=== PATIENT | male | born 1970 | race Two or more races ===

== ENCOUNTER 2020-12-29 15:54 | Emergency (ER) | payer BC ==
[~2020-12-29] VITALS: Ht 180.3 cm; Wt 90.9 kg
[2020-12-29] MEDS ORDERED: OMEP10CASR PO (16:11)
[2020-12-29] MEDS ORDERED: PLAV1TAB2 PO (16:11)
[2020-12-29 16:34] LABS: BASO % 0.4 % (0.0-1.0); EOS # 0.4 10^3/uL (0.0-0.5); EOS % 5.7 % (0.0-3.0); HEMATOCRIT 46.4 % (42.0-52.0); HEMOGLOBIN 15.5 g/dl (13.5-17.5); LYMPH # 2.9 10^3/uL (1.5-5.0); LYMPH % 38.2 % (24.0-44.0); MEAN CORPUSCULAR HEMOGLOBIN 29.5 pg (27.0-33.0); MEAN CORPUSCULAR HGB CONC 33.4 g/dl (32.0-36.5); MEAN CORPUSCULAR VOLUME 88.4 fl (80.0-96.0); MONO # 0.7 10^3/uL (0.0-0.8); MONO % 9.7 % (2.0-8.0); NEUTROPHILS # 3.5 10^3/uL (1.5-8.5); NEUTROPHILS % 45.7 % (36.0-66.0); PLATELET COUNT, AUTOMATED 273 10^3/uL (150-450); RED BLOOD COUNT 5.25 10^6/uL (4.30-6.10); WHITE BLOOD COUNT 7.6 10^3/uL (4.0-10.0)
--- NOTE | 2020-12-29 16:40 | REP ---
INDICATION: CHEST PAIN. COMPARISON: None TECHNIQUE: Portable AP chest with the patient upright.. FINDINGS: The lung portillo are clear. Cardiac size is normal. The dhaval, mediastinum and skeletal structures are unremarkable. IMPRESSION: Essentially negative portable chest <Electronically signed by Jeff Wray > 12/29/20 [id number]
[2020-12-29 17:03] LABS: CK-MB VALUE MASS < 1.0 NG/ML (<3.6); CPK CREATINE PHOSPHOKINASE 109 U/L (39-308); MB/CK RELATIVE INDEX 0.92 (< OR =4); NT-PRO BNP 81 PG/ML (<125); TROPONIN I < 0.02 NG/ML (< 0.10)
[2020-12-29] MEDS ORDERED: CARVedilol 6.25 MG TAB PO ONE (18:10)
[2020-12-29 18:30] VITALS: BP 123/79
[2020-12-29] MEDS ORDERED: CARV6.25 PO (19:49)
[2020-12-29 20:00] VITALS: BP 131/86
--- NOTE | 2020-12-29 20:32 | ECGEPIP ---
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
--- NOTE | 2020-12-30 19:16 | ECGEPIP ---
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
== END 2020-12-29 20:04 | disposition home or self-care (01) ==
LOC: M ED 15:54
DX: K21.9 Gastro-esophageal reflux disease without esophagitis (principal); R00.2 Palpitations; I25.10 Atherosclerotic heart disease of native coronary artery without angina pectoris; Z95.5 Presence of coronary angioplasty implant and graft; Z79.01 Long term (current) use of anticoagulants; Z79.899 Other long term (current) drug therapy

== ENCOUNTER → 2021-01-02 | Outpatient (CLI) | payer BC ==
[~2021-01-02] MED LIST: CARV6.25 PO; OMEP10CASR PO; PLAV1TAB2 PO
[2021-01-02 17:21] LABS: HEMOGLOBIN A1c 5.2 %
[2021-01-02 17:22] LABS: HEMATOCRIT 46.4 % (42.0-52.0); MEAN CORPUSCULAR HEMOGLOBIN 29.1 pg (27.0-33.0); MEAN CORPUSCULAR HGB CONC 32.3 g/dl (32.0-36.5); MEAN CORPUSCULAR VOLUME 89.9 fl (80.0-96.0); PLATELET COUNT, AUTOMATED 289 10^3/uL (150-450); RED BLOOD COUNT 5.16 10^6/uL (4.30-6.10); WHITE BLOOD COUNT 8.1 10^3/uL (4.0-10.0)
[2021-01-02 17:42] LABS: ALBUMIN 3.8 GM/DL (3.2-5.2); ALT/SGPT 33 U/L (12-78); BILIRUBIN,TOTAL 0.5 MG/DL (0.2-1.0); BLOOD UREA NITROGEN 16 MG/DL (7-18); CALCIUM LEVEL 8.4 MG/DL (8.5-10.1); CARBON DIOXIDE LEVEL 30 MEQ/L (21-32); CHLORIDE LEVEL 106 MEQ/L (98-107); CHOLESTEROL LEVEL 203 MG/DL (<200); CREATININE FOR GFR 0.98 MG/DL (0.70-1.30); GLOMERULAR FILTRATION RATE > 60.0 (>60); GLUCOSE, FASTING 89 MG/DL (70-100); HDL CHOLESTEROL 51 MG/DL (>40); LDL CHOLESTEROL 107 MG/DL (<100); MAGNESIUM LEVEL 2.1 MG/DL (1.8-2.4); NON-HDL-C 152 MG/DL; POTASSIUM SERUM 4.2 MEQ/L (3.5-5.1); SODIUM LEVEL 138 MEQ/L (136-145); TOTAL PROTEIN 7.5 GM/DL (6.4-8.2); TRIGLYCERIDES LEVEL 224 MG/DL (<150)
[2021-01-02 17:54] LABS: HEPATITIS B SURFACE ANTIGEN NEGATIVE (NEGATIVE)
[2021-01-02 18:23] LABS: HEPATITIS C VIRUS ABY INDEX 0.1 INDEX (<0.8); HIV 1&2 SCREEN CENTAUR NEGATIVE (NEGATIVE)
== END ==
LOC: M PLALAB 15:33
PROVIDERS: ATTEND Student in an Organized Health Care Education/Training Program
DX: Z76.89 Persons encountering health services in other specified circumstances (principal)

== ENCOUNTER → 2021-01-02 | Outpatient (REF) | payer BC | LOC: M SFHCPLAZ 15:25 | DX: I25.2 Old myocardial infarction (principal); K21.9 Gastro-esophageal reflux disease without esophagitis; I10 Essential (primary) hypertension ==

== ENCOUNTER → 2021-01-31 | Outpatient (CLI) | payer BC ==
[2021-01-31 16:08] LABS: CHOLESTEROL RISK RATIO 3.483 (<5); FREE T4 0.99 NG/DL (0.76-1.46); THYROID STIMULATING HORMONE 4.12 uIU/ML (0.358-3.740)
== END ==
LOC: M PLALAB 13:04
PROVIDERS: ATTEND Student in an Organized Health Care Education/Training Program
DX: R79.89 Other specified abnormal findings of blood chemistry (principal); E78.5 Hyperlipidemia, unspecified

== ENCOUNTER → 2021-08-20 | Outpatient (CLI) | payer BC ==
[2021-08-20 15:57] LABS: CHOLESTEROL RISK RATIO 2.363 (<5); FREE T4 1.13 NG/DL (0.76-1.46); THYROID STIMULATING HORMONE 3.71 uIU/ML (0.358-3.740)
== END ==
LOC: M PLALAB 11:21
PROVIDERS: ATTEND Student in an Organized Health Care Education/Training Program
DX: R79.89 Other specified abnormal findings of blood chemistry (principal); E78.5 Hyperlipidemia, unspecified

== ENCOUNTER 2022-01-06 18:39 | Emergency (ER) | payer BC ==
[~2022-01-06] VITALS: Ht 180.3 cm; Wt 104.9 kg
[2022-01-06 18:39] VITALS: BP 145/84
== END 2022-01-06 22:12 | disposition left against medical advice (07) ==
LOC: M ED 18:39
DX: Z53.29 Procedure and treatment not carried out because of patient's decision for other reasons (principal)

== ENCOUNTER → 2022-01-07 | Outpatient (CLI) | payer BC ==
[2022-01-07 18:35] LABS: BASO % 0.5 % (0.0-1.0); EOS # 0.3 10^3/uL (0.0-0.5); EOS % 5.7 % (0.0-3.0); HEMATOCRIT 46.9 % (42.0-52.0); HEMOGLOBIN 15.3 g/dl (13.5-17.5); LYMPH # 1.7 10^3/uL (1.5-5.0); LYMPH % 30.9 % (24.0-44.0); MEAN CORPUSCULAR HEMOGLOBIN 29.8 pg (27.0-33.0); MEAN CORPUSCULAR HGB CONC 32.6 g/dl (32.0-36.5); MEAN CORPUSCULAR VOLUME 91.4 fl (80.0-96.0); MONO # 0.5 10^3/uL (0.0-0.8); MONO % 9.1 % (2.0-8.0); NEUTROPHILS % 53.6 % (36.0-66.0); PLATELET COUNT, AUTOMATED 299 10^3/uL (150-450); RED BLOOD COUNT 5.13 10^6/uL (4.30-6.10); WHITE BLOOD COUNT 5.6 10^3/uL (4.0-10.0)
[2022-01-07 19:25] LABS: ALBUMIN 4.1 GM/DL (3.2-5.2); ALT/SGPT 27 U/L (12-78); BLOOD UREA NITROGEN 8 MG/DL (7-18); CALCIUM LEVEL 9.7 MG/DL (8.5-10.1); CARBON DIOXIDE LEVEL 27 MEQ/L (21-32); CHLORIDE LEVEL 104 MEQ/L (98-107); CREATININE FOR GFR 0.99 MG/DL (0.70-1.30); FREE T4 1.28 NG/DL (0.76-1.46); GLOMERULAR FILTRATION RATE > 60.0 (>60); GLUCOSE, FASTING 85 MG/DL (70-100); POTASSIUM SERUM 4.6 MEQ/L (3.5-5.1); SODIUM LEVEL 136 MEQ/L (136-145)
== END ==
LOC: M WUC 13:20
PROVIDERS: ATTEND Physician Assistant
DX: F34.1 Dysthymic disorder (principal)

== ENCOUNTER → 2023-10-26 | Outpatient (CLI) | payer OTHER ==
[~2023-10-26] MED LIST changes: +CLOP75TA99 PO; -PLAV1TAB2 PO
[2023-10-26 15:55] LABS: BASO % 0.1 % (0.0-1.0); EOS # 0.2 10^3/uL (0.0-0.5); EOS % 2.9 % (0.0-3.0); HEMATOCRIT 46.1 % (42.0-52.0); LYMPH # 2.3 10^3/uL (1.5-5.0); LYMPH % 30.6 % (24.0-44.0); MEAN CORPUSCULAR HEMOGLOBIN 29.1 pg (27.0-33.0); MEAN CORPUSCULAR HGB CONC 32.5 g/dl (32.0-36.5); MEAN CORPUSCULAR VOLUME 89.3 fl (80.0-96.0); MONO # 0.5 10^3/uL (0.0-0.8); MONO % 6.7 % (2.0-8.0); NEUTROPHILS # 4.5 10^3/uL (1.5-8.5); NEUTROPHILS % 59.4 % (36.0-66.0); PLATELET COUNT, AUTOMATED 292 10^3/uL (150-450); RED BLOOD COUNT 5.16 10^6/uL (4.30-6.10); WHITE BLOOD COUNT 7.6 10^3/uL (4.0-10.0)
[2023-10-26 15:58] LABS: ALBUMIN 3.7 G/DL (3.2-5.2); ALKALINE PHOSPHATASE 78 U/L (46-116); ALT/SGPT 28 U/L (7.0-40); AST/SGOT 17 U/L (<34); BLOOD UREA NITROGEN 14 MG/DL (9-23); CALCIUM LEVEL 9.4 MG/DL (8.5-10.1); CARBON DIOXIDE LEVEL 28 MMOL/L (20-31); CHLORIDE LEVEL 103 MMOL/L (98-107); CHOLESTEROL LEVEL 199 MG/DL (<200); CHOLESTEROL RISK RATIO 3.66 (<5); CREATININE FOR GFR 0.93 MG/DL (0.70-1.30); GLOMERULAR FILTRATION RATE > 60.0 (>56); GLUCOSE, FASTING 79 MG/DL (60-100); HDL CHOLESTEROL 54.3 MG/DL (>40); LDL CHOLESTEROL 104.9 MG/DL (<100); NON-HDL-C 144.7 MG/DL; POTASSIUM SERUM 4.5 MMOL/L (3.5-5.1); PSA SCREENING 1.08 NG/ML (< 4.00); SODIUM LEVEL 137 MMOL/L (136-145); TRIGLYCERIDES LEVEL 199 MG/DL (<150)
[2023-10-26 15:59] LABS: THYROID STIMULATING HORMONE 2.682 uIU/ML (0.55-4.78)
[2023-10-26 16:00] LABS: FREE T4 1.22 NG/DL (0.89-1.76)
[2023-10-26 16:15] LABS: HEMOGLOBIN A1c 5.1 % (4.0-6.0)
== END ==
LOC: M PLALAB 12:15
PROVIDERS: ATTEND Student in an Organized Health Care Education/Training Program
DX: I10 Essential (primary) hypertension (principal); Z13.29 Encounter for screening for other suspected endocrine disorder; E78.5 Hyperlipidemia, unspecified; Z13.1 Encounter for screening for diabetes mellitus; Z12.5 Encounter for screening for malignant neoplasm of prostate

== ENCOUNTER → 2023-10-26 | Outpatient (REF) | payer OTHER | LOC: M SFHCPLAZ 11:52 | PROVIDERS: ATTEND Family Medicine | DX: I10 Essential (primary) hypertension (principal); Z13.29 Encounter for screening for other suspected endocrine disorder; E78.5 Hyperlipidemia, unspecified; Z13.1 Encounter for screening for diabetes mellitus ==